=== PATIENT | female | born 1955 | race African-American/Black ===

== ENCOUNTER 2024-09-20 12:49 | Emergency (ER) | payer MEDICARE, OTHER ==
[~2024-09-20] VITALS: Ht 165.1 cm; Wt 85.0 kg
[2024-09-20 12:56] VITALS: TEMP 36.7; O2SAT 95
[2024-09-20] MEDS ORDERED: NAPR-681 MT (15:07)
[2024-09-20 15:29] VITALS: BP 118/90; PULSE 80; RESP 16; O2SAT 99
== END 2024-09-20 16:12 | disposition home or self-care (01) ==
LOC: ER 12:49
DX: M17.11 Unilateral primary osteoarthritis, right knee (principal); R51.9 Headache, unspecified; F03.90 Unspecified dementia, unspecified severity, without behavioral disturbance, psychotic disturbance, mood disturbance, and anxiety; Z96.652 Presence of left artificial knee joint
CPT/HCPCS: 73502; 73560; 99284